=== PATIENT | male | born 1980 | race African-American/Black ===

== ENCOUNTER 2022-04-15 18:54 | Emergency (ER) | payer OTHER ==
[~2022-04-15] VITALS: Ht 167.6 cm; Wt 80.3 kg
== END 2022-04-15 20:57 | disposition home or self-care (01) ==
LOC: ER 18:54
DX: S69.91XA Unspecified injury of right wrist, hand and finger(s), initial encounter (principal); X58.XXXA Exposure to other specified factors, initial encounter; Y93.9 Activity, unspecified; Y92.9 Unspecified place or not applicable